=== PATIENT | female | born 1990 | race Caucasian/White ===

== ENCOUNTER 2016-10-28 19:47 | Emergency (ER) | payer OTHER ==
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
--- NOTE | 2016-10-29 11:05 | ED MED RECONCILIATION SUMMARY ---
Patient: MONTANA BUSTOS Medication Reconciliation Report [facility] VisitID: [id number] [address] [place] [address] 26y, F Registration Date/Time: 10/28/2016 Weight: 90.7 kg Height/Length: 65 in. BMI: 33.3 ALLERGIES: Penicillins The patient's Home Medications are listed below: THE FOLLOWING MEDICATIONS NEED TO BE RECONCILED: Vitamins Oral The source(s) of the original Home Medication information: patient The following Medications were given to the patient in the Emergency Department: None. The following Medications were prescribed to the patient: Flexeril 10 mg: Take 1 orally every 8 hours as needed for muscle spasm. Dispense twenty (20). No refills. Substitution is permissible. -- Cassandra Garcia, Tracy.R.N.P. Ultram 50 mg tablets: take 1-2 orally every 6 hours as needed for pain. Dispense twenty (20). No refills. Substitution is permissible. -- Cassandra Garcia A.R.N.P.
--- NOTE | 2016-10-29 11:05 | ED MAR SUMMARY ---
..... Medication Administration Record [facility] [address] [place], [place] [id number] Patient: MONTANA BUSTOS Visit ID: [id number] 26y, F Weight: 90.7 kg Height/Length: 65 in BMI: 33.3 ALLERGIES: Penicillins
--- NOTE | 2016-10-29 11:05 | ED MAR SUMMARY ---
..... Medication Administration Record [facility] [address] [place], [place] [id number] Patient: MONTANA BUSTOS Visit ID: [id number] 26y, F Weight: 90.7 kg Height/Length: 65 in BMI: 33.3 ALLERGIES: Penicillins
--- NOTE | 2016-10-29 11:05 | ED MED RECONCILIATION SUMMARY ---
Patient: MONTANA BUSTOS Medication Reconciliation Report [facility] VisitID: [id number] [address] [place] [address] 26y, F Registration Date/Time: 10/28/2016 Weight: 90.7 kg Height/Length: 65 in. BMI: 33.3 ALLERGIES: Penicillins The patient's Home Medications are listed below: THE FOLLOWING MEDICATIONS NEED TO BE RECONCILED: Vitamins Oral The source(s) of the original Home Medication information: patient The following Medications were given to the patient in the Emergency Department: None. The following Medications were prescribed to the patient: Flexeril 10 mg: Take 1 orally every 8 hours as needed for muscle spasm. Dispense twenty (20). No refills. Substitution is permissible. -- Cassandra Garcia, Tracy.R.N.P. Ultram 50 mg tablets: take 1-2 orally every 6 hours as needed for pain. Dispense twenty (20). No refills. Substitution is permissible. -- Cassandra Garcia A.R.N.P.
== END 2016-10-28 21:05 | disposition home or self-care (01) ==
LOC: ED SRH 19:47
DX: S23.3XXA Sprain of ligaments of thoracic spine, initial encounter (principal); S20.211A Contusion of right front wall of thorax, initial encounter; V43.52XA Car driver injured in collision with other type car in traffic accident, initial encounter; Y93.89 Activity, other specified; Y92.410 Unspecified street and highway as the place of occurrence of the external cause; Y99.9 Unspecified external cause status; Z88.0 Allergy status to penicillin

== ENCOUNTER 2016-10-31 12:00 | Emergency (ER) | payer OTHER ==
--- NOTE | 2016-10-31 13:08 | ED ORDER SUMMARY ---
..... Patient: MONTANA BUSTOS OrderSheet [facility] VisitID: [id number] [address] [place] [address] 26y, F Registration Date/Time: 10/31/2016 ORDER SHEET Weight: 90.7 kg (stated) Allergies: Penicillins GENERAL ORDERS: Cervical Spine 2 or 3V Urgent (12:36 10/31/2016 concha RIVERA) [facility] Thoracic Spine 2V Urgent (12:36 [facility]31/2016 [facility] (Ack 12:38 [facility]) Chest 2V Ur[facility] (12:37 [facility]31[facility]2016 [facility] (Ack 12:38 oerner) MEDICATION ORDERS: IV FLUIDS: ORDER SHEET NOTES: [Electronically signed by Sanchez Blake DO (13:34 10/31/2016)] [Electronically signed by Paige Calvillo R.N. (19:32 10/31/2016)] [Electronically locked/signed by Paige Calvillo R.N. (19:32 10/31/2016)]
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
--- NOTE | 2016-10-31 13:08 | ED ORDER SUMMARY ---
..... Patient: MONTANA BUSTOS OrderSheet [facility] VisitID: [id number] [address] [place] [address] 26y, F Registration Date/Time: 10/31/2016 ORDER SHEET Weight: 90.7 kg (stated) Allergies: Penicillins GENERAL ORDERS: Cervical Spine 2 or 3V Urgent (12:36 10/31/2016 concha RIVERA) ([facility] Thoracic Spine 2[facility]12:36 [facility] (Ack 12:38 oerner) Chest 2V Urgent (12:37 [facility]/31/2016 [facility] (Ack 12:38 oerner) MEDICATION ORDERS: IV FLUIDS: ORDER SHEET NOTES: [Electronically signed by Sanchez Blake DO (13:34 10/31/2016)] [Electronically signed by Paige Calvillo R.N. (19:32 10/31/2016)] [Electronically locked/signed by Paige Calvillo R.N. (19:32 10/31/2016)]
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
--- NOTE | 2016-10-31 13:22 | DIAGNOSTIC IMAGING REPORT ---
PROCEDURE: XR CERVICAL SPINE 2 OR 3 VIEW INDICATION: NECK TRAUMA/INJURY TECHNIQUE: Three views. COMPARISON: None. FINDINGS: Osseous structures and disc spaces are normal. No evidence of an acute process or fracture. IMPRESSION: 1. Negative cervical spine.
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
--- NOTE | 2016-10-31 13:23 | DIAGNOSTIC IMAGING REPORT ---
PROCEDURE: XR CHEST 2 VIEW INDICATION: CHEST PAIN TECHNIQUE: PA and lateral views. COMPARISON: None. FINDINGS: Lungs are clear. Heart and mediastinum are normal. Thorax is normal. IMPRESSION: 1. Negative chest.
--- NOTE | 2016-10-31 19:32 | ED MED RECONCILIATION SUMMARY ---
Patient: MONTANA BUSTOS Medication Reconciliation Report [facility] VisitID: [id number] [address] [place] [address] 26y, F Registration Date/Time: 10/31/2016 Weight: 90.7 kg Height/Length: 65 in. BMI: 33.3 ALLERGIES: Penicillins The patient's Home Medications are listed below: CONTINUE TAKING THE FOLLOWING MEDICATIONS: Biotin Oral Cyclobenzaprine HCl Oral Vitamins Oral TraMADol HCl Oral The source(s) of the original Home Medication information: patient The following Medications were given to the patient in the Emergency Department: None. The following Medications were prescribed to the patient: Acetaminophen (available over the counter): take according to label instructions. -- Sanchez Blake DO Motrin (available over the counter): take according to label instructions. -- Sanchez Blake DO Oxycodone/APAP 5 mg/325 mg: take 1 tablet orally every 8 hours as needed for pain. Dispense ten (10). No refill. -- Sanchez Blake DO
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
--- NOTE | 2016-10-31 19:32 | ED MAR SUMMARY ---
..... Medication Administration Record [facility] [address] [place], [place] [id number] Patient: MONTANA BUSTOS Visit ID: [id number] 26y, F Weight: 90.7 kg Height/Length: 65 in BMI: 33.3 ALLERGIES: Penicillins
--- NOTE | 2016-10-31 19:32 | ED MED RECONCILIATION SUMMARY ---
Patient: MONTANA BUSTOS Medication Reconciliation Report [facility] VisitID: [id number] [address] [place] [address] 26y, F Registration Date/Time: 10/31/2016 Weight: 90.7 kg Height/Length: 65 in. BMI: 33.3 ALLERGIES: Penicillins The patient's Home Medications are listed below: CONTINUE TAKING THE FOLLOWING MEDICATIONS: Biotin Oral Cyclobenzaprine HCl Oral Vitamins Oral TraMADol HCl Oral The source(s) of the original Home Medication information: patient The following Medications were given to the patient in the Emergency Department: None. The following Medications were prescribed to the patient: Acetaminophen (available over the counter): take according to label instructions. -- Sanchez Blake DO Motrin (available over the counter): take according to label instructions. -- Sanchez Blake DO Oxycodone/APAP 5 mg/325 mg: take 1 tablet orally every 8 hours as needed for pain. Dispense ten (10). No refill. -- Sanchez Blake DO
--- NOTE | 2016-10-31 19:32 | ED MAR SUMMARY ---
..... Medication Administration Record [facility] [address] [place], [place] [id number] Patient: MONTANA BUSTOS Visit ID: [id number] 26y, F Weight: 90.7 kg Height/Length: 65 in BMI: 33.3 ALLERGIES: Penicillins
== END 2016-10-31 13:16 | disposition home or self-care (01) ==
LOC: ED SRH 12:00
DX: S16.1XXA Strain of muscle, fascia and tendon at neck level, initial encounter (principal); S29.012A Strain of muscle and tendon of back wall of thorax, initial encounter; S20.01XA Contusion of right breast, initial encounter; V43.52XA Car driver injured in collision with other type car in traffic accident, initial encounter; Y93.89 Activity, other specified; Y92.410 Unspecified street and highway as the place of occurrence of the external cause; Y99.9 Unspecified external cause status